=== PATIENT | female | born 1955 | race Caucasian/White ===

== ENCOUNTER 2017-05-18 02:01 | Observation (INO) | payer OTHER ==
[~2017-05-18] VITALS: Ht 157.5 cm; Wt 90.7 kg
--- NOTE | 2017-05-18 15:51 | Operative Report ---
Operative/Inv Procedure Report Surgery Date: 05/18/17 Name of Procedure: Neck exploration, removal of parathyroid adenoma, left with Nims monitor Pre-Operative Diagnosis: r/o Parathyroid adenoma, left Post-Operative Diagnosis: Same Estimated Blood Loss: scant Surgeon/Magnetic Prospecting Operator: Garfield GIBSON,Thelma VARGAS Anesthesia: general endotracheal tube Monitors: Nims monitor Drains: CALEB 1 Specimens: Parathyroid tumor, left Complications: None Condition: Stable on leaving the OR Operative Indication: Patient had hypercalcemia with hyperparathyroidism workup localized to single parathyroid adenoma at the left inferior parathyroid location Operative/Procedure Note Note: The patient was brought to the operating room. Patient was placed on the operating room table in supine position. At first timeout was performed including patient's identification and the surgical procedure to be performed. Then general orotracheal anesthesia was induced. NIMS tube was inserted with direct visualization with the glida scope. Electrodes were placed directly over the vocal cords. NIMS tube was secured in place with tape. The grounding electrodes were then inserted into the sternum area and all electrodes were connected to the NIMS monitor. NIMS monitor was set on thyroidectomy mode. Gentle top of the patient's lower neck in para laryngeal and tracheal region yielded a nerve action potential which was visualized on the monitor. Action potential visualized on both sides which confirmed proper positioning of the NIMS tube. Neck was slightly hyperextended. The proposed incision was previously marked in a short-term surgery with patient sitting upright. Surgical table was left in place with head toward anesthesia. Neck was prepped and draped in the routine manner and surgery was performed. A horizontal incision was placed in a skin crease manner over the lower neck as previously marked. The incision was then crosshatched for skin approximation at the end of the surgery. The incision was carried with a 15 blade through the skin and subcutaneous tissue. Platysma was identified and transected next. The superior skin flap was then elevated in subplatysmal manner. Then the inferior skin flap was elevated in subplatysmal manner. Both skin flaps were then retracted by application stay sutures with 2-0 silk. Care was taken to preserve the subplatysmal venous plexus which was quite extensive. Strap muscles were identified in the midline and . Sternal notch, trachea, cricoid ring and larynx were palpated. Dissection was carried in the midline over upper trachea until the thyroid isthmus was identified. Strap muscles on the left were then retracted laterally and attention was paid to the inferior thyroid lobe. With blunt dissection the anterior surface of the inferior thyroid lobe was dissected all the way to the lateral side of the thyroid lobe. The thyroid lobe was retracted medially and the just lateral to it, lesion was observed which would appear to be parathyroid adenoma. Careful dissection was carried around the lesion including blindness and sharp dissection were resolved Estrada and cautery was applied with bipolar. Dissection was carried along the inferior pole lateral and superior pole of the lesion. Then the lesion was from all its medial attachments to the thyroid gland. Nerve stimulator was used to be sure that there was no recurrent laryngeal nerve in the surgical field.. Nerve was never fully visualized. Also it didn't stimulate. Primary venous and arterial supply to the tumor was identified as it entered pseudotumor over its medial deep surface. Again followed by artery was separately clamped, cut and tied. This completely freeing the tumor. Tumor was removed. Wound was copiously irrigated. 15 minutes following removal of the tumor, blood work was obtained to check for the PTH. PTH was in the 40s. Preoperative PTH was about 250. With this a blood work surgery was completed. Surgical bed was copiously irrigated. Surgeons changed gloves and applied fresh towels around the wound. Additional irrigation was then carried. The wound was carefully inspected for bleeders. There was no bleeding. Valsalva was applied. There was no air leak and no additional bleeding. Helotene powder was placed into the thyroid bed for hemostasis. One #10 [place] suction drain was inserted into the wound for drainage, exiting on the left lateral end of the wound. It was stitched in place with 2-0 silk. Closure was then carried at strap muscles were approximated in the midline. Then platysma was closed with 4-0 Vicryl inverting sutures. Then skin was approximated with subcuticular horizontal running stitch with 5-0 Monocryl . Dermabond was applied to the incision followed by Steri-Strips. Pressure dressing was placed with fluffs and wraparound four-inch Chaya gauze. Patient was then reawakened, recurrent laryngeal nerve was monitored during extubation. There was normal action potential on both sides. Patient was then extubated and taken to the recovery room in good condition. There were no complications. Estimated blood loss was 20 mL. Findings: Parathyroid tumor located within the left inferior parathyroid gland location at the inferior and midportion of the thyroid gland measuring approximately 2 x 4 cm Discharge Disposition: PACU
[2017-05-18 17:13] VITALS: BP 138/80
[2017-05-18] MEDS ORDERED: PRINIVIL20 M1 PO (19:50)
--- NOTE | 2017-05-18 19:53 | Admission Core Measures ---
Acute Coronary Syndrome (CM) ACS Core Measures Acute Coronary Syndrome Diagnosis No Congestive Heart Failure (NEW) CHF Core Measures Congestive Heart Failure Diagnosis No Cerebrovascular Accident (NEW) CVA Core Measures CVA/TIA Diagnosis No Venous Thromboembolism VTE Core Aaron (View Protocol) VTE Risk Factors Surgery No Mechanical VTE Prophylaxis d/t N/A MechProphylax Ordered No VTE Pharm Prophylaxis d/t NA PharmProphylax ordered Problem List As ranked by this Provider includes Assessment & Plan 1. Parathyroid adenoma HOME MEDS Home Med List Lisinopril (Prinivil) 20 MG TABLET 1 TAB PO DAILY HTN (Reported)
--- NOTE | 2017-05-18 20:05 | PN- Ear, Nose & Throat ---
Subjective Subjective: POSTOP NOTE Reports pain well controlled. Tolerating clears w/o n/v. Ambulated oob, voiding spontanously. Denies hoarseness, difficulty swallowing, c/p or sob. Objective Vital Signs and I&Os Vital Signs Date Time Temp Pulse Resp B/P B/P Pulse O2 O2 Flow FiO2 Mean Ox Delivery Rate 05/18 1713 98.4 95 20 138/80 91 Room Air Intake & Output 05/18 1600 05/18 0800 05/18 0000 05/17 1600 05/17 0800 05/17 0000 Intake Total Output Total Balance Patient 200 lb Weight Physical Exam: Gen - resting comfortably in NAD Neck - circumferential kerlix dressing in place, c/d/i, jpx1 in place with 10 cc sanguineous drainage, no hematoma or active drainage noted Cardiac - S1S2 noted Lungs - CTAB Ext - alps in place, no edema or calf tenderness B/L Neuro - nvi, no gross focal deficits Current Medications: Current Medications Sig/Yareli Start time Last Medication Dose Route Stop Time Status Admin Acetaminophen 650 MG Q6PRN PRN 05/18 1530 AC PO Cefazolin Sodium 1,000 MG Q8H 05/18 2100 AC IV 05/19 2059 Cefazolin Sodium 1,000 MG IQ8 05/18 1600 DC IV 05/19 1559 Dextrose/Sodium 1,000 ML .Q10H 05/18 1530 AC 05/18 Chloride IV 1807 Docusate Sodium 100 MG DAILY 05/19 1000 DC PO Docusate Sodium 100 MG DAILY NEEDED PRN 05/18 1530 AC PO Fentanyl Citrate 250 MCG .STK-MED ONE 05/18 1149 DC IM 05/18 1150 Heparin Sodium 5,000 UNIT Q8 05/18 2200 AC (Porcine) SC Lisinopril 20 MG DAILY 05/19 1000 AC PO Midazolam HCl 2 MG .STK-MED ONE 05/18 1149 DC IM 05/18 1150 Morphine Sulfate 4 MG Q4P PRN 05/18 1545 AC IV Ondansetron HCl 4 MG Q8P PRN 05/18 1530 AC IV Oxycodone/ 1 TAB Q8 PRN 05/18 1545 AC Acetaminophen PO Oxycodone/ 2 TAB ONCE PRN 05/18 1545 AC Acetaminophen PO Polyethylene Glycol 17 GM DAILY PRN 05/18 1545 AC PO Remifentanil 3 MG .STK-MED ONE 05/18 1151 DC IV 05/18 1152 Results Last 48 Hours of Labs: Laboratory Tests 05/18 05/18 05/18 05/18 05/18 1620 1620 1530 1425 0859 Chemistry Creatinine (0.5 - 1.0 mg/dL) 0.6 Estimated GFR (>60 ml/min) > 60 Calcium (8.4 - 10.2 mg/dL) 11.7 H Albumin (3.5 - 5.0 g/dL) 4.3 PTH Intact (18.4 - 80.1 pg/ML) 20.3 43.6 258.4 H Assessment/Plan Assessment/Plan 61 F POD 0 s/p neck exploration with removal of left-sided parathyroid nodule and CALEB x1 secondary to left parathyroid nodule who is recovering well. PTH within normal range postop Clear liquid diet, advance as tolerated, Cont IVF CALEB to bulb suction IV ancef while drains in place Percocet prn DVT ppx - alps, hsq Home med on board Bowel regimen on board Encourage oob ambulation AM labs tomorrow Observation in anticipation of d/c tomorrow Core Measures Venous Thromboembolism VTE Risk Factors Surgery No Mechanical VTE Prophylaxis d/t N/A MechProphylax Ordered No VTE Pharm Prophylaxis d/t NA PharmProphylax ordered
[2017-05-18 22:46] VITALS: BP 110/60
[2017-05-19 06:37] VITALS: BP 116/68
[2017-05-19 08:10] LABS: ABSOLUTE BASOPHIL COUNT 0 /CUMM (0.0-0.2); ABSOLUTE EOSINOPHIL COUNT 0.1 /CUMM (0.0-0.7); ABSOLUTE GRANULOCYTE CT 9.5 /CUMM (1.4-6.5); ABSOLUTE LYMPH COUNT 1.8 /CUMM (1.2-3.4); ABSOLUTE MONOCYTE COUNT 0.7 /CUMM (0.10-0.60); BASOPHIL % 0.2 % (0.0-2.0); EOSINOPHIL % 0.5 % (0-5); MEAN CORPUSCULAR HGB 29.7 PG (27.0-31.0); MEAN CORPUSCULAR HGB CONC 33.3 G/DL (33.0-37.0); MEAN PLATELET VOLUME 7.8 FL (7.4-10.4); PLATELET COUNT 292 /CUMM (130-400); RBC DISTRIBUTION WIDTH 14.1 % (11.5-14.5); RED BLOOD CELL CT 3.93 /CUMM (4.20-5.40); WHITE BLOOD CELL COUNT 12.1 /CUMM (4.8-10.8)
--- NOTE | 2017-05-19 08:58 | Surg Short-stay <48hrs Dis Sum ---
Visit Information Visit Dates Admission Date: 05/18/17 Discharge Date: 05/18/2017 Surgical Short Stay DC Summary Admission Diagnosis: Parathyroid adenoma Final Diagnosis: Same Procedure(s): Parathyroidectomy Summary/Significant Findings: This is a 61-year-old female with a parathyroid adenoma who presented electively on 05/18/2017 for parathyroidectomy. Patient underwent the mentioned procedure without complication. Postoperatively course was uncomplicated. Her PTH and calcium were monitored in a serial fashion. By time of discharge her PTH has normalized and calcium remained slightly elevated at 11.7. At time of discharge patient had no issues with dysphagia, odynophagia, hoarseness, weak or shoddy voice, or numbness or tingling in the face lips or hands. On 05/19/2017 she was deemed appropriate for discharge. Her CALEB drain was removed at the bedside. Patient told procedure well. At this time she is also ambulating, voiding, tolerating regular diet, and pain is well-controlled with oral analgesia. Plan is for patient to follow-up with Dr. Merrill in 1-2 weeks for postoperative evaluation. She was instructed to call sooner with any other problems, questions, or concerns. Condition at Discharge: Stable Discharge Disposition: home or self care Discharge instructions provided to patient/family: Yes Post discharge follow-up plan: Patient was instructed to monitor for edema, erythema, ecchymosis, hematoma, or seroma at the incision site. She is also instructed to call the office with any signs of hypocalcemia including numbness or tingling in the face lips or hands. She also instructed to call if any other problems, questions, or concerns. Copies to: Garfield GIBSON,Thelma Urrutia
[2017-05-19 10:38] VITALS: BP 120/62
--- NOTE | 2017-05-19 10:57 | Patient Discharge Instructions ---
Discharge Instructions General Discharge Information You were seen/treated for: Left side parathyroid adenoma You had these procedures: Parathyroidectomy Watch for these problems: Increasing pain despite the use of pain medication. Increasing swelling Drainage from incision Inability to speak or swallow Difficulty breathing Persistent nausea and vomitting Fever greater than 100.6 Do not soak the wound: Yes Other wound care: Keep dressing dry and intact until you see Dr. Merrill in office Diet Continue normal diet: Yes Recommended Diet: Regular Additional DIET Information: Advance consistency as tolerated Activity Full Activity/No Limits: No Activity Self Limited: Yes Acute Coronary Syndrome Inclusion Criteria At DC or during hospital stay patient has or had the following: ACS DIAGNOSIS No Discharge Core Measures Meds if any: Prescribed or Continued at Discharge Meds if any: NOT Prescribed or Continued at Discharge Congestive Heart Failure Inclusion Criteria At DC or during hospital stay patient has or had the following: CHF DIAGNOSIS No Discharge Core Measures Meds if any: Prescribed or Continued at Discharge Meds if any: NOT Prescribed or Continued at Discharge Cerebrovascular accident Inclusion Criteria At DC or during hospital stay patient has or had the following: CVA/TIA Diagnosis No Discharge Core Measures Meds if any: Prescribed or Continued at Discharge Meds if any: NOT Prescribed or Continued at Discharge Venous thromboembolism Inclusion Criteria VTE Diagnosis No VTE Type NONE VTE Confirmed by (Test) NONE Discharge Core Measures - Per Current guidelines, there needs to be overlap - treatment for the first 5 days of Warfarin therapy. - If discharged on Warfarin prior to 5 days of - overlap therapy, the patient will need to be - assessed for post discharge needs including - *Post discharge parental anticoagulation - *Warfarin and/or parental anticoagulation education - *Follow up date to check INR post discharge At least 5 days overlap therapy as Inpatient No Meds if any: Prescribed or Continued at Discharge Note: Overlap Therapy is Warfarin and Anticoagulant Meds if any: NOT Prescribed or Continued at Discharge
--- NOTE | 2017-05-19 11:56 | PN- Ear, Nose & Throat ---
Subjective Subjective: Patient doing well. Pain is well-controlled with oral analgesia. She's been ambulating and voiding without any difficulty. She denies any dysphagia, odynophagia, numbness or tingling around the face or hand. No other issues or complaints from patient or nursing. Objective Vital Signs and I&Os Vital Signs Date Time Temp Pulse Resp B/P B/P Pulse O2 O2 Flow FiO2 Mean Ox Delivery Rate 05/19 1038 120/62 05/19 0800 94 05/19 0637 97.9 76 20 116/68 93 Room Air 05/18 2246 98.3 103 20 110/60 92 Room Air 05/18 2117 Room Air 05/18 1713 98.4 95 20 138/80 91 Room Air Intake & Output 05/19 1600 05/19 0800 05/19 0000 05/18 1600 05/18 0800 05/18 0000 Intake Total 1200 980 Output Total 660 10 Balance 540 970 Intake, IV 800 500 Intake, Oral 400 480 Output, 10 10 Drainage Output, Urine 650 Patient 200 lb Weight Physical Exam: General: Alert, awake, no acute distress HEENT: Normocephalic atraumatic, anterior cervical incision taken down, incision is clean, dry, and intact with Steri-Strips in place no surrounding edema, erythema, ecchymosis signs of hematoma or seroma, CALEB drain with serosanguineous output this was removed at the bedside and patient tolerated procedure well Extremities no clubbing, cyanosis or edema Current Medications: Current Medications Sig/Yareli Start time Last Medication Dose Route Stop Time Status Admin Acetaminophen 1,000 MG .STK-MED ONE 05/18 1630 DC IV 05/18 1631 Acetaminophen 650 MG Q6PRN PRN 05/18 1530 DCD 05/18 PO 2141 Cefazolin Sodium 1,000 MG Q8H 05/18 2100 DCD 05/19 IV 05/19 2059 0523 Cefazolin Sodium 1,000 MG IQ8 05/18 1600 DC IV 05/19 1559 Dextrose/Sodium 1,000 ML .Q10H 05/18 1530 DC 05/19 Chloride IV 0226 Docusate Sodium 100 MG DAILY 05/19 1000 DC PO Docusate Sodium 100 MG DAILY NEEDED PRN 05/18 1530 DCD PO Heparin Sodium 5,000 UNIT Q8 05/18 2200 DCD 05/19 (Porcine) SC 0523 Lisinopril 20 MG DAILY 05/19 1000 DCD 05/19 PO 1038 Morphine Sulfate 4 MG Q4P PRN 05/18 1545 DCD IV Ondansetron HCl 4 MG Q8P PRN 05/18 1530 DCD IV Oxycodone/ 1 TAB Q8 PRN 05/18 1545 DCD 05/19 Acetaminophen PO 0530 Oxycodone/ 2 TAB ONCE PRN 05/18 1545 DCD Acetaminophen PO Polyethylene Glycol 17 GM DAILY PRN 05/18 1545 DCD PO Sodium Phosphate 1 UNIT ONCE ONE 05/18 2130 DC ID 05/18 2130 Results Last 48 Hours of Labs: Laboratory Tests 05/19 05/18 05/18 05/18 0724 2131 1620 1620 Chemistry Sodium (137 - 145 mmol/L) 139 Potassium (3.5 - 5.1 mmol/L) 3.9 Chloride (98 - 107 mmol/L) 103 Carbon Dioxide (22 - 30 mmol/L) 26 Anion Gap (5 - 16) 11 BUN (7 - 17 mg/dL) 14 Creatinine (0.5 - 1.0 mg/dL) 0.7 Estimated GFR (>60 ml/min) > 60 BUN/Creatinine Ratio (7 - 25 %) 20.0 Calcium (8.4 - 10.2 mg/dL) 9.6 Albumin (3.5 - 5.0 g/dL) 4.3 PTH Intact (18.4 - 80.1 pg/ML) 53.9 21.1 20.3 Hematology CBC w Diff NO MAN DIFF REQ WBC (4.8 - 10.8 /CUMM) 12.1 H RBC (4.20 - 5.40 /CUMM) 3.93 L Hgb (12.0 - 16.0 G/DL) 11.7 L Hct (37 - 47 %) 35.0 L MCV (81.0 - 99.0 FL) 89.0 MCH (27.0 - 31.0 PG) 29.7 MCHC (33.0 - 37.0 G/DL) 33.3 RDW (11.5 - 14.5 %) 14.1 Plt Count (130 - 400 /CUMM) 292 MPV (7.4 - 10.4 FL) 7.8 Gran % (42.2 - 75.2 %) 79.0 H Lymphocytes % (20.5 - 51.1 %) 14.6 L Monocytes % (1.7 - 9.3 %) 5.7 Eosinophils % (0 - 5 %) 0.5 Basophils % (0.0 - 2.0 %) 0.2 Absolute Granulocytes (1.4 - 6.5 /CUMM) 9.5 H Absolute Lymphocytes (1.2 - 3.4 /CUMM) 1.8 Absolute Monocytes (0.10 - 0.60 /CUMM) 0.7 H Absolute Eosinophils (0.0 - 0.7 /CUMM) 0.1 Absolute Basophils (0.0 - 0.2 /CUMM) 0 05/18 05/18 05/18 1530 1425 0859 Chemistry Creatinine (0.5 - 1.0 mg/dL) 0.6 Estimated GFR (>60 ml/min) > 60 Calcium (8.4 - 10.2 mg/dL) 11.7 H PTH Intact (18.4 - 80.1 pg/ML) 43.6 258.4 H Recent Imaging Studies: None today Assessment/Plan Assessment/Plan This is a 61-year-old female with past medical history significant for parathyroid adenoma who is postoperative day #1 status post parathyroidectomy. Recovering well, plan for today is to discharge to home. Please see discharge summary for further details. Patient has been discussed with Dr. Merrill who is in agreement with the plan of care. Problem List: 1. Parathyroid adenoma 2. S/P parathyroidectomy Core Measures Venous Thromboembolism VTE Risk Factors Surgery No Mechanical VTE Prophylaxis d/t N/A MechProphylax Ordered No VTE Pharm Prophylaxis d/t NA PharmProphylax ordered
== END 2017-05-19 11:35 ==
LOC: STS 02:01 → PACUH 09:55 → ENRESERV 15:53 → ENTRNSPT 16:50 → EDTRNSPT 16:54 → EDTRNSPTSTS 16:54 → 2NA 17:05 → CMPTRNSPT 17:17 → 2NA 05-19 11:35
PROVIDERS: Physician Assistant Surgical
DX: E21.0 Primary hyperparathyroidism (principal); I10 Essential (primary) hypertension; J45.909 Unspecified asthma, uncomplicated; R42 Dizziness and giddiness; E66.9 Obesity, unspecified; Z68.36 Body mass index [BMI] 36.0-36.9, adult
CPT/HCPCS: 6030; 36415; 82436; 96372; 96374; C9399; G0378; J0131; J0690; J1644; J7042